=== PATIENT | male | born 1985 | race Caucasian/White ===

== ENCOUNTER 2018-12-23 19:15 | Emergency (ER) | payer BC, OTHER ==
[2018-12-23 19:37] LABS: ABS Basophils 0.1 10^3/ul (0-0.2); ABS Eosinophils 0.2 10^3/ul (0-0.6); ABS Lymphocytes 2.6 10^3/ul (1.0-4.8); ABS Monocytes 0.8 10^3/ul (0-0.8); ABS Neutrophils 6.6 10^3/ul (1.5-7.7); Eosinophil % 2.2 %; Hematocrit 41 % (42-52); Hemoglobin 14.4 g/dL (14.0-18.0); Lymphocyte % 25.1 %; Mean Corpuscular HGB Conc 35 g/dL (31-36); Mean Corpuscular Hemoglobin 28 pg (27-31); Mean Corpuscular Volume 80 fL (80-94); Mean Platelet Volume 7.7 fL (7.4-10.4); Nucleated Red Blood Cells % 0.1; Platelet Count 215 10^3/uL (150-450); Red Cell Distribution Width 13 % (10-15); White Blood Count 10.4 10^3/uL (3.5-10.8)
[2018-12-23 19:43] LABS: INR 1.06 (0.82-1.09)
[2018-12-23 19:55] LABS: Albumin 4.8 g/dL (3.2-5.2); Albumin/Globulin Ratio 2.2 (1-3); BUN/Creatinine Ratio 14.8 (8-20); Calcium 9.7 mg/dL (8.6-10.3); EGFR African American 96.5 (>60); EGFR Non-African American 79.7 (>60); Globulin 2.2 g/dL (2-4); Potassium 3.4 mmol/L (3.5-5.0); Total Bilirubin 0.4 mg/dL (0.2-1.0)
[2018-12-23 19:56] LABS: Troponin I 0.01 ng/mL (<0.04)
--- OUTSIDE RECORDS SUMMARY | 2018-12-23 20:21 | XMS REPORT | Continuity of Care Document ---
:1985 External Reference #:[id number] Author Name Quan Lopez MD (transmitted by agent of provider Tamie Lorenzo) Address [address] [place] [id number] Problems Description No Information Available Social History Type Date Description Comments Sex Unknown ETOH Use Drinks Alcoholic Beverages Occasionally Tobacco Use Start: Unknown Patient has never smoked Recreational Drug Use Denies Drug Use Smoking Status Reviewed: 12/12/18 Patient has never smoked Exercise Type/Frequency Exercises regularly Allergies, Adverse Reactions, Alerts Description No Known Drug Allergies Medications Description No Active Medications Immunizations Description No Information Available Vital Signs Date Vital Result Comment 12/12/2018 10:01am Height 71 inches 5'11" Weight 207.00 lb Heart Rate 78 /min BP Systolic Sitting 106 mmHg BP Diastolic Sitting 78 mmHg Respiratory Rate 16 /min Body Temperature 98.3 F BMI (Body Mass Index) 28.9 kg/m2 10/05/2018 9:08am Height 71 inches 5'11" Weight 215.00 lb Heart Rate 72 /min BP Systolic 122 mmHg BP Diastolic 80 mmHg Respiratory Rate 16 /min Body Temperature 98.2 F BMI (Body Mass Index) 30.0 kg/m2 Results Description No Information Available Procedures Description No Information Available Medical Devices Description No Information Available Encounters Type Date Location Provider Dx Diagnosis Office Visit 10/05/2018 [facility] Qu[facility]in K40.90 Unil inguinal 9:00a Of Jese Lopez MD hernia, w/o obst or gangr, not spcf as recur Assessments Date Code Description Provider 10/05/2018 K40.90 Unilateral inguinal hernia, without Quan Lopez MD obstruction or gangrene, Plan of Treatment Future Appointment(s):01/23/2019 9:45 am - Quan Lopez MD at [facility] [place]86/21/2019 10:15 am - Quan Lopez MD at [facility]10/05/2018 - Quan Lopez MDK40.90 Unilateral inguinal hernia, without obstruction or gangrene, Functional Status Description No Information Available Mental Status Description No Information Available Referrals Description No Information Available
--- NOTE | 2018-12-23 22:03 | ED ---
HPI Chest Pain - HPI Summary HPI Summary: 33 yo male presents to [facility] ED accompanied by his girlfriend with chest tightness. Pt tells me that over the last week he and his grilfriend have been traveling around [facility] [place] for a vacation. 4 days ago developed nausea. He tried peptobismal and felt better, but nausea returned the next day. Today around 1430 he sat down to have lunch and felt tightness in his lower central chest. He has had PNA in the past and this felt similar, therefore he used a friend's albuterol inhaler - no change. He ate lunch with no change. His symptoms persisted since that time prompting his visit to the ED. Nothing makes his discomfort better or worse. He denies recent illness, neck pain, dizziness, headache, SOB, chest pain, abdominal pain, vomiting. He is still mildly nauseous. He states no PMHx and no family hx of cardiac events. His girlfriend mentions that he has been burping a lot more lately - pt agrees with this. - History of Current Complaint Chief Complaint: EDChestPainROMI Time Seen by Provider: 12/23/18 22:03 Hx Obtained From: Patient, Family/Absorption And Adsorption Engineer Initial Severity: Mild Current Severity: Mild Pain Intensity: 1 Pain Scale Used: 0-10 Numeric - Allergy/Home Medications Allergies/Adverse Reactions: Allergies Allergy/AdvReac Type Severity Reaction Status Date / Time No Known Allergies Allergy Verified 12/23/18 19:24 PMH/Surg Hx/FS Hx/Imm Hx Endocrine/Hematology History: Denies: Hx Diabetes Cardiovascular History: Denies: Hx Angina, Hx Atrial Fibrillation, Hx Cardiac Arrest Respiratory History: Denies: Hx Asthma, Hx Chronic Obstructive Pulmonary Disease (COPD) History: Denies: Hx Acute Renal Failure Neurological History: Denies: Hx CVA, Hx Migraine - Surgical History Surgical History: None - Immunization History Immunizations Up to Date: Yes Infectious Disease History: No Infectious Disease History: Reports: Traveled Outside the [place] in Last 30 Days - [place] - Family History Known Family History: Positive: None - Social History Occupation: Employed Full-time Lives: With Family Alcohol Use: Rare Substance Use Type: Reports: None Smoking Status (MU): Never Smoked Tobacco Review of Systems Constitutional: Negative Eyes: Negative ENT: Negative Cardiovascular: Other - chest tightness Respiratory: Negative Positive: Nausea Genitourinary: Negative Musculoskeletal: Negative Skin: Negative Neurological: Negative Psychological: Normal All Other Systems Reviewed And Are Negative: No Physical Exam - Summary Physical Exam Summary: GENERAL: NAD. WDWN. No pain distress. SKIN: No rashes, sores, or open wounds. HEENT: Head: AT/NC Eyes: PERRLA. EOM intact. Conjunctiva clear without inflammation or discharge. Ears: Hearing grossly normal. TMs intact, no bulging, erythema, or edema. Nose: Nasal mucosa pink and moist. NTTP maxillary and frontal sinus. Throat: Posterior oropharynx without exudates, erythema, or tonsillar enlargement. Uvula midline. NECK: Supple. Nontender. No lymphadenopathy. CHEST: CTAB. No r/r/w. No accessory muscle use. Breathing comfortably and in no distress. CV: RRR. Without m/r/g. Pulses intact. Brisk cap refill. ABDOMEN: Soft. NTTP. No distention or guarding. No organomegaly. No CVA tenderness. Bowel sounds present. Nausea worsened when palpating epigastric region. MSK: FROM and 5/5 strength throughout. No edema. NEURO: Alert. PSYCH: Age appropriate behavior. Triage Information Reviewed: Yes Vital Signs On Initial Exam: Initial Vitals Temp Pulse Resp BP Pulse Ox 99 F 67 18 106/82 100 12/23/18 19:24 12/23/18 19:24 12/23/18 19:24 12/23/18 19:24 12/23/18 19:24 Vital Signs Reviewed: Yes Diagnostics - Vital Signs Vital Signs Temp Pulse Resp BP Pulse Ox 12/23/18 22:00 20 12/23/18 21:56 13 12/23/18 21:55 16 132/79 12/23/18 21:17 98.7 F 52 18 126/81 99 12/23/18 19:24 99 F 67 18 106/82 100 - Laboratory Lab Results: Lab Results 12/23/18 12/23/18 12/23/18 Range/Units 19:31 19:31 19:31 WBC 10.4 (3.5-10.8) 10^3/uL RBC 5.10 (4.18-5.48) 10^6 /uL Hgb 14.4 (14.0-18.0) g/dL Hct 41 L (42-52) % MCV 80 (80-94) fL MCH 28 (27-31) pg MCHC 35 (31-36) g/dL RDW 13 (10-15) % Plt Count 215 (150-450) 10^3/uL MPV 7.7 (7.4-10.4) fL Neut % (Auto) 64.1 % Lymph % (Auto) 25.1 % Millard % (Auto) 7.5 % Eos % (Auto) 2.2 % Baso % (Auto) 1.1 % Absolute Neuts (auto) 6.6 (1.5-7.7) 10^3/ul Absolute Lymphs (auto) 2.6 (1.0-4.8) 10^3/ul Absolute Monos (auto) 0.8 (0-0.8) 10^3/ul Absolute Eos (auto) 0.2 (0-0.6) 10^3/ul Absolute Basos (auto) 0.1 (0-0.2) 10^3/ul Absolute Nucleated RBC 0.0 10^3/ul Nucleated RBC % 0.1 INR (Anticoag Therapy) 1.06 (0.82-1.09) Sodium 140 (135-145) mmol/L Potassium 3.4 L (3.5-5.0) mmol/L Chloride 108 (101-111) mmol/L Carbon Dioxide 24 (22-32) mmol/L Anion Gap 8 (2-11) mmol/L BUN 16 (6-24) mg/dL Creatinine 1.08 (0.67-1.17) mg/dL Est GFR ( Amer) 96.5 (>60) Est GFR (Non-Af Amer) 79.7 (>60) BUN/Creatinine Ratio 14.8 (8-20) Glucose 98 (70-100) mg/dL Calcium 9.7 (8.6-10.3) mg/dL Total Bilirubin 0.40 (0.2-1.0) mg/dL AST 14 (13-39) U/L ALT 18 (7-52) U/L Alkaline Phosphatase 50 (34-104) U/L Troponin I 0.01 (<0.04) ng/mL Total Protein 7.0 (6.4-8.9) g/dL Albumin 4.8 (3.2-5.2) g/dL Globulin 2.2 (2-4) g/dL Albumin/Globulin Ratio 2.2 (1-3) Result Diagrams: 12/23/18 19:31 12/23/18 19:31 Lab Statement: Any lab studies that have been ordered have been reviewed, and results considered in the medical decision making process. - Radiology CXR Radiology Interpretation Completed By: ED Physician Summary of Radiographic Findings: No acute process - EKG 1 EKG Comparison: Other Summary of EKG Findings: 67bpm NSR. No STEMI as read by Dr. Glroia Chest Pain Course/Dx - Course Course Of Treatment: HEART score 0. Labs WNL. Troponin negative x2. In the ED course pt was given maalox, pepcid, and viscous lidocaine with resolution of his nausea and mild improvement of his chest tightness. I suspect GERD at this time. Will rx for pantoprazole and have him try a bland diet for the next few days. Advised to f/u with PCP within 1 week for a recheck of his symptoms or return to ED if symptoms worsen. Pt voiced understanding and is in agreement with the plan. - Chest Pain Differential Diagnosis/HQI/PQRI: ACS, GI Disease, Pulmonary Edema - Diagnoses Provider Diagnoses: Chest tightness, Nausea Discharge ED - Sign-Out/Discharge Documenting (check all that apply): Patient Departure Patient Received Moderate/Deep Sedation with Procedure: No - Discharge Plan Condition: Stable Disposition: HOME Prescriptions: Pantoprazole TAB (NF) [Protonix TAB (NF)] 20 mg PO DAILY #30 tab Patient Education Materials: Chest Pain (DC), Gastroesophageal Reflux Disease ( DC), Epigastric Pain (ED) Referrals: No Primary Care Phys,NOPCP [Primary Care Provider] - [facility] PHYSICIAN REFERRAL [Outside] - As Soon As Possible Additional Instructions: If you develop a fever, shortness of breath, chest pain, new or worsening symptoms - please call your PCP or go to the ED immediately. Your workup today was normal/negative. I recommend that you schedule a follow up appointment within 1 week with your primary doctor for a recheck of your symptoms. I suspect your symptoms are related to acid reflux, but if your symptoms change or worsen - please return to the ED immediately. - Billing Disposition and Condition Condition: STABLE Disposition: Home - Attestation Statements Provider Attestation: I was available for consultation for this patient. I did not evaluate the patient or participate in any medical decision making or disposition decisions unless I am specifically named in the chart as having consulted on the patient. If I have consulted on the patient, please see my own ED note on the patient encounter. Taniya Jackson MD
[2018-12-23] MEDS ORDERED: Famotidine TAB* 20 MG PO ONE (22:20)
[2018-12-23] MEDS ORDERED: Al Hydrox/Mg Hydrox/Simet LIQ* 30 ML UDC PO ONE (22:20)
[2018-12-23] MEDS ORDERED: Lidocaine 2% VISCOUS* 15 ML UDC PO ONE (22:20)
[2018-12-24 00:03] VITALS: BP 111/88
== END 2018-12-24 00:01 | disposition home or self-care (01) ==
LOC: ED 19:15
DX: R07.9 Chest pain, unspecified (principal); R11.0 Nausea
CPT/HCPCS: 36415; 71046; 80053; 84484; 85025; 85610; 93005; 99284; A9270-GY

== ENCOUNTER → 2019-02-05 | Day surgery (SDC) | payer BC, OTHER ==
[~2019-02-05] MED LIST: Acetaminophen TAB* 325 MG ONE; Acetaminophen TAB* 325 MG PO ONE; Buffered Lidocaine 1% SYRIN* 1 ML/SYRINGE INTRADERM ONE; Bupivacaine 0.25% SDV PF* 10 ML VIAL INJ ONE; Dexamethasone IV* 4 MG/ML 1 ML (4 MG) ONE; EPHEDrine (Pressors)* 50 MG/ML VIAL ONE; Glycopyrrolate IV* 0.2 MG/ML 1 ML VIAL ONE; HYDROmorphone INJ1* 1 MG/ML SYRINGE IV PRN; HYDROmorphone INJ1* 1 MG/ML SYRINGE ONE; Ketorolac INJ* 30 MG/ML 1 ML VIAL ONE; Lactated Ringers 1000 ML Bag* 1,000 ML IV SCH; Lidocaine 2% PF* 10 ML AMP ONE; Midazolam* 1 MG/ML 2 ML VIAL (2 MG) ONE; Naloxone* 0.4 MG/ML 1 ML VIAL IV PRN; Neostigmine Methylsulfate* 3 MG/3 ML SYRINGE ONE; Ondansetron INJ* 2 MG/ML VIAL IV PRN; Ondansetron INJ* 2 MG/ML VIAL ONE; PROCHLORPERAZINE INJ 5 MG/ML 2 ML VIAL IV PRN; Propofol* 10 MG/ML 20 ML BTL ONE; Rocuronium* 10 MG/ML VIAL ONE; ceFAZolin 2 GM in NS PREMIX(*) 2 GM/100 ML BAG IVPB ONE; fentaNYL* 50 MCG/ML 5 ML VIAL (250 MCG VIAL) ONE; oxyCODONE TAB* 5 MG TAB ONE; oxyCODONE TAB* 5 MG TAB PO PRN
[2019-02-05 14:25] VITALS: BP 117/93
--- NOTE | 2019-02-05 14:38 | OP ---
DATE OF OPERATION: 02/05/19 - [facility] DATE OF : 89 SURGEON: Quan Lopez MD PROMOTIONAL MARKETING ANALYST: Brooklynn Carter RN/AUTOMATIC DIE CUTTING MACHINE OPERATOR/DARIANA PRE-OP DIAGNOSIS: Right inguinal hernia. POST-OP DIAGNOSIS: Right inguinal hernia. OPERATIVE PROCEDURE: Robotic right inguinal hernia repair with mesh. INDICATIONS FOR PROCEDURE: Symptomatic right inguinal hernia. Risks including , but not limited to bleeding, infection, injury to intraabdominal contents including the bowel, pelvic nerves and vessels, recurrence of the hernia all explained the patient, who seemed to understand, agreed to the procedure, and all questions were answered. DESCRIPTION OF PROCEDURE: The patient was taken to the operating room, placed supine. Preoperative antibiotics were given. After a successful induction of general endotracheal anesthesia, the abdomen was prepped and draped in sterile fashion. A 5-mm trocar was placed in the left upper quadrant under direct visualization of the camera using a bladeless Optiview trocar. Pneumoperitoneum was achieved to 15 mmHg. Camera was placed in the abdomen. The abdomen was scanned. There was no obvious injury from trocar placement. 8- mm trocars were placed in the supraumbilical and right upper quadrant respectively under direct visualization of the camera and the 5-mm trocar was replaced with a robotic 8-mm trocar. The abdomen was scanned. The right inguinal hernia was identified. No left inguinal hernia was identified. Mesh and suture were passed into the abdomen. The robot was brought and then docked after the patient was placed in the slight Trendelenburg position. The peritoneum was taken down and the hernia sac was gently dissected free from the cord. The right-sided ProGrip mesh was then placed over the hemipelvis after a large cord lipoma was removed from the indirect canal. This covered the femoral , direct, and indirect spaces. The large lipoma was left outside the mesh. The peritoneum was closed using a running 3-0 V-Loc suture and the large lipoma was tacked at the inside of the peritoneum with a few sutures as the peritoneum was closed. The abdomen was scanned. There was no obvious injury. The pneumoperitoneum was released from the abdomen. The trocars were removed. Skin was closed with Monocryl and glue. The patient tolerated the procedure well. He was extubated and taken to the Recovery in stable condition. [id number]/[facility] #: [id number] [facility]
== END | disposition home or self-care (01) ==
LOC: EDUNIT# 07:30 → OR 09:39
PROVIDERS: ATTEND Surgery
DX: K40.90 Unilateral inguinal hernia, without obstruction or gangrene, not specified as recurrent (principal); K21.9 Gastro-esophageal reflux disease without esophagitis
CPT/HCPCS: 49650; S2900; A9270-GY; C1781; J0690; J1100; J1170; J1885; J2001; J2250; J2405; J2704; J2710; J3010; J3490